=== PATIENT | female | born 1950 | race Native Hawaiian/Other Pacific Islander ===

== ENCOUNTER 2016-12-21 16:55 | Outpatient (CLI) | payer OTHER ==
[~2016-12-21 16:55] MED LIST: BYSTOLIC10 MG PO; EQ ASPIRIN325 M1 OR; ESTR1TAB13 PO; FLAX SEED1000 MG OR; FLUC150T PO; LEVO500T PO; MULT VITAMI1 OR; PRAVACHOL20 MG PO; PROBIOTI2 OR; TRIA37.541 PO
== END 2016-12-21 23:51 | disposition home or self-care (01) ==
LOC: LAB 16:55
DX: N39.0 Urinary tract infection, site not specified (principal)
CPT/HCPCS: 87086; 87088

== ENCOUNTER 2022-07-21 12:08 | Outpatient (CLI) | payer OTHER ==
[2022-07-21 12:19] LABS: PLATELET COUNT 196 K/uL (152-353)
[2022-07-21 12:51] LABS: POTASSIUM 4.1 mmol/L (3.6-5.2)
== END 2022-07-21 19:21 | disposition home or self-care (01) ==
LOC: LAB 12:08
PROVIDERS: ATTEND Internal Medicine
DX: I10 Essential (primary) hypertension (principal); Z78.0 Asymptomatic menopausal state; E55.9 Vitamin D deficiency, unspecified
CPT/HCPCS: 80053; 80061; 81002; 82306; 84443; 84550; 85027